=== PATIENT | female | born 1940 | race Hispanic/Latino ===

== ENCOUNTER 2017-08-03 08:29 | Day surgery (SDC) | payer MEDICARE, BC ==
[2017-08-03] MEDS ORDERED: Lactated Ringer's 500 ML IV ONE (09:22)
[2017-08-03] MEDS ORDERED: Propofol 10 mg/ml Inj (20 ML) ONE (10:55)
[2017-08-03 11:10] VITALS: TEMP 97.2; O2SAT 99
[2017-08-03 11:28] VITALS: BP 124/67; PULSE 57; RESP 20
== END 2017-08-03 11:36 | disposition home or self-care (01) ==
LOC: H.ENDO 08:29
PROVIDERS: ATTEND Internal Medicine Gastroenterology
DX: Z86.010 Personal history of colon polyps (principal); D12.3 Benign neoplasm of transverse colon; K64.8 Other hemorrhoids; Z98.0 Intestinal bypass and anastomosis status; K57.30 Diverticulosis of large intestine without perforation or abscess without bleeding
CPT/HCPCS: 45380; 88305; J2001; J2704; J7120